=== PATIENT | male | born 2000 | race Caucasian/White ===

== ENCOUNTER 2021-11-14 21:09 | Inpatient (IN) ==
[2021-11-14] MEDS ORDERED: Ondansetron 4 MG/2 ML VIAL IVP ONE (23:19)
[2021-11-15] MEDS ORDERED: 0.9 % Sodium Chloride 1,000 ML IVC ONE (00:10)
[2021-11-15 00:47] LABS: Basophils # 0.1 K/mcL (0.0-0.2); Basophils % 0.2 %; Eosinophils % 0.1 %; Hematocrit 45.8 % (37.5-50.1); Hemoglobin 14.4 g/dL (12.9-16.9); Immature Granulocytes % 0.5 % (0-4); Lymphocytes # 2.8 K/mcL (0.6-4.6); Lymphocytes % 10.8 %; Mean Corpuscular HGB Conc 31.4 g/dL (31.6-35.5); Mean Corpuscular Hemoglobin 28.2 pg (28.0-33.3); Mean Corpuscular Volume 89.8 fL (83.0-100.0); Mean Platelet Volume 8.4 fL (9.4-12.4); Monocytes # 1.9 K/mcL (0.0-1.3); Monocytes % 7.3 %; Platelet Count 417 K/mcL (140-400); Red Cell Distribution Width 14.6 % (11.5-14.5); Segmented Neutrophils % 81.1 %; White Blood Count 25.9 K/mcL (4.3-11.1)
[2021-11-15 00:54] LABS: Prothrombin Time 11.6 Seconds (9.4-12.1)
[2021-11-15 00:56] LABS: Activated Partial Thrombo Time 31.5 Seconds (26.0-36.0)
[2021-11-15 01:08] LABS: Alanine Aminotransferase 29 Units/L (7-52); Albumin 3.6 g/dL (3.5-5.7); Albumin/Globulin Ratio 0.9 (1.1-2.2); Alkaline Phosphatase 131 Units/L (34-104); Aspartate Amino Transferase 51 Units/L (13-39); BUN/Creatinine Ratio 17 (6-26); Bilirubin,Indirect 0.2 mg/dL (0.0-1.0); Bilirubin,Total 0.2 mg/dL (0.3-1.0); Blood Urea Nitrogen 13 mg/dL (6-20); Calcium 8.8 mg/dL (8.6-10.3); Carbon Dioxide 31 mEq/L (23-29); Chloride 102 mEq/L (98-107); Globulin 3.9 g/dL (2.4-3.5); Glucose 65 mg/dL (70-105); Osmolality,Calculated 284 (280-300); Potassium 4.9 mEq/L (3.5-5.1); Sodium 138 mEq/L (136-145); Total Protein 7.5 g/dL (6.4-8.9); eGFR For African Americans > 60 (> 60); eGFR For Non-African Americans > 60 (> 60)
[2021-11-15 01:14] LABS: Troponin I 0.06 ng/mL (< 0.04)
[2021-11-15] MEDS ORDERED: Ampicillin/Sulbactam 3,000 MG in 0.9 % Sodium Chloride Mini Bag 100 ML IVPB ONE (02:34)
[2021-11-15] MEDS ORDERED: Naloxone 0.4 MG/ML INJ IVP PRN (03:29)
[2021-11-15] MEDS ORDERED: Ondansetron 4 MG/2 ML VIAL IVP PRN (03:29)
[2021-11-15] MEDS ORDERED: Acetaminophen 325 MG TABLET PO PRN (03:29)
[2021-11-15] MEDS ORDERED: Melatonin 3 MG TABLET PO PRN (03:29)
[2021-11-15] MEDS ORDERED: Chloraseptic Spray 177 ML BOTTLE MM PRN (03:32)
[2021-11-15] MEDS ORDERED: D5% in Water 1,000 ML IVC PRN (03:32)
[2021-11-15] MEDS ORDERED: *HR* Dextrose 50 % in Water (Syg) 50 ML SYRINGE IVP PRN (03:32)
[2021-11-15] MEDS ORDERED: Saline Nasal Spray 44 ML BOTTLE NS PRN (03:32)
[2021-11-15] MEDS ORDERED: Dextrose 4 GM Chewable Tablets PO PRN ×2 (03:32)
[2021-11-15] MEDS ORDERED: Artificial Tears SOLN 15 ML BOTTLE BOTH EYES PRN (03:32)
[2021-11-15] MEDS ORDERED: Saliva Stimulant 44.3ml BOTTLE PO PRN (03:32)
[2021-11-15] MEDS ORDERED: Ipratropium/Albuterol Neb 3 ML IH SCH (04:00)
[2021-11-15] MEDS: Piperacillin/Tazobactam 3.375 GM in 0.9 % Sodium Chloride Mini Bag 100 ML IVPB SCH ×3 (05:22→21:46)
[2021-11-15 05:32] LABS: Basophils # 0.1 K/mcL (0.0-0.2); Basophils % 0.4 %; Eosinophils # 0.2 K/mcL (0.0-0.6); Hematocrit 39.5 % (37.5-50.1); Hemoglobin 12.2 g/dL (12.9-16.9); Immature Granulocytes % 0.3 % (0-4); Immature Platelets 3.3 % (1.1-6.1); Mean Corpuscular HGB Conc 30.9 g/dL (31.6-35.5); Mean Corpuscular Hemoglobin 28.5 pg (28.0-33.3); Mean Corpuscular Volume 92.3 fL (83.0-100.0); Mean Platelet Volume 9.7 fL (9.4-12.4); Monocytes # 1.2 K/mcL (0.0-1.3); Neutrophils # 11.3 K/mcL (1.6-8.9); Platelet Count 254 K/mcL (140-400); Red Blood Count 4.28 M/mcL (4.19-5.50); Red Cell Distribution Width 14.8 % (11.5-14.5); Segmented Neutrophils % 67.3 %; White Blood Count 16.8 K/mcL (4.3-11.1)
[2021-11-15 05:39] LABS: INR 1.1; Prothrombin Time 12.5 Seconds (9.4-12.1)
[2021-11-15 05:41] LABS: Activated Partial Thrombo Time 31.3 Seconds (26.0-36.0)
[2021-11-15 05:50] LABS: Alanine Aminotransferase 24 Units/L (7-52); Albumin 3.1 g/dL (3.5-5.7); Albumin/Globulin Ratio 0.9 (1.1-2.2); Alkaline Phosphatase 116 Units/L (34-104); Aspartate Amino Transferase 37 Units/L (13-39); BUN/Creatinine Ratio 15 (6-26); Bilirubin,Total 0.1 mg/dL (0.3-1.0); Blood Urea Nitrogen 11 mg/dL (6-20); Carbon Dioxide 30 mEq/L (23-29); Chloride 102 mEq/L (98-107); Chol/HDL Ratio 2.3 (0-4.9); Cholesterol 103 mg/dL (< 200); Globulin 3.5 g/dL (2.4-3.5); Glucose 214 mg/dL (70-105); HDL Cholesterol 44 mg/dL (40-59); LDL Cholesterol,Calculated 48 mg/dL (< 100); Osmolality,Calculated 290 (280-300); Phosphorous 3.3 mg/dL (2.7-4.5); Potassium 4.6 mEq/L (3.5-5.1); Sodium 137 mEq/L (136-145); Total Protein 6.6 g/dL (6.4-8.9); Triglycerides 54 mg/dL (< 150); eGFR For African Americans > 60 (> 60); eGFR For Non-African Americans > 60 (> 60)
[2021-11-15 06:11] LABS: Adenovirus Not Detected (Not Detect); Bordetella Pertussis Not Detected (Not Detect); Chlamydophila pneumoniae Not Detected (Not Detect); Coronavirus 229E Not Detected (Not Detect); Coronavirus HKU1 Not Detected (Not Detect); Coronavirus NL63 Not Detected (Not Detect); Coronavirus OC43 Not Detected (Not Detect); Human Metapneumovirus Not Detected (Not Detect); Human Rhinovirus/Enterovirus Not Detected (Not Detect); Influenza A Subtype 2009 H1 Not Detected (Not Detect); Influenza B Not Detected (Not Detect); Mycoplasma pneumoniae Not Detected (Not Detect); Parainfluenza Virus 1 Not Detected (Not Detect); Parainfluenza Virus 2 Not Detected (Not Detect); Parainfluenza Virus 3 Not Detected (Not Detect); Parainfluenza Virus 4 Not Detected (Not Detect); Respiratory Syncytial Virus Not Detected (Not Detect); SARS-CoV-2 Not Detected (Not Detect)
[2021-11-15] MEDS ORDERED: Nicotine 2 MG GUM BC PRN (06:11)
[2021-11-15] MEDS: Acetylcysteine 10% 2 ML INHSOL IH SCH ×4 (07:20→21:59)
[2021-11-15] MEDS: Ipratropium/Albuterol Neb 3 ML IH SCH ×4 (07:20→21:59)
[2021-11-15] MEDS: 3% Sodium Chloride Inhalation 4 ML VIAL.NEB IH SCH ×3 (07:20→15:33)
[2021-11-15] MEDS ORDERED: Perflutren Lipid Microsphere 1.3 ML in 0.9 % Sodium Chloride 8.7 ML IVP PRN (07:28)
[2021-11-15] MEDS: Insulin LISPRO 300 UNITS/3 ML VIAL SUBQ SCH ×3 (07:58→17:21)
[2021-11-15] MEDS: Aspirin 81 MG TAB.CHEW PO SCH (07:59)
[2021-11-15] MEDS: levoFLOXacin 750 MG/150 ML 750 MG/150 ML BAG IVPB SCH (07:59)
[2021-11-15] MEDS: predniSONE 20 MG TABLET PO SCH (07:59)
[2021-11-15] MEDS: Nicotine 21 MG PATCH.TD24 TD SCH (07:59)
[2021-11-15] MEDS: Chlorhexidine Rinse 15 ML MOUTHWASH MM SCH ×2 (07:59→20:19)
[2021-11-15] MEDS: Multivit/Ca/Min/Fe/FA 1 TAB TABLET PO SCH (07:59)
[2021-11-15] MEDS: 0.9 % Sodium Chloride 1,000 ML IVC SCH ×2 (08:10→23:19)
[2021-11-15] MEDS: Budesonide/Formoterol 160/4.5 1 PUFF INH IH SCH ×2 (10:28→21:59)
[2021-11-15 12:50] LABS: Amphetamine Screen,Urine Negative ng/mL (Cutoff=1000); Barbiturate Screen,Urine Negative ng/mL (Cutoff=200); Benzodiazepines Screen,Urine Negative ng/mL (Cutoff=200); Cannabinoid Screen,Urine Positive ng/mL (Cutoff = 50); Cocaine Screen,Urine Negative ng/mL (Cutoff= 300); Opiate Screen,Urine Negative ng/mL (Cutoff=300); Phencyclidine Screen,Urine Negative ng/mL (Cutoff=25)
[2021-11-15] MEDS ORDERED: Sennosides/Docusate Sodium TABLET PO PRN (18:25)
[2021-11-15] MEDS: IVACAFTOR 150 MG PO SCH (20:19)
[2021-11-15] MEDS: DORNASE ALFA 2.5 MG/2.5 ML IH SCH (21:59)
[2021-11-16] MEDS: Ipratropium/Albuterol Neb 3 ML IH SCH ×4 (04:13→20:23)
[2021-11-16] MEDS: Acetylcysteine 10% 2 ML INHSOL IH SCH ×4 (04:13→20:23)
[2021-11-16] MEDS: *HR* Enoxaparin 40 MG/0.4 ML SYRINGE SQ SCH ×2 (05:11→05:13)
[2021-11-16] MEDS: Piperacillin/Tazobactam 3.375 GM in 0.9 % Sodium Chloride Mini Bag 100 ML IVPB SCH (06:16)
[2021-11-16] MEDS: Nicotine 21 MG PATCH.TD24 TD SCH (08:55)
[2021-11-16] MEDS: IVACAFTOR 150 MG PO SCH ×2 (08:55→20:15)
[2021-11-16] MEDS: Insulin LISPRO 300 UNITS/3 ML VIAL SUBQ SCH ×4 (08:56→21:43)
[2021-11-16] MEDS ORDERED: [UNRECOGNIZED DRUG - MIXTURE] PO SCH (09:00)
[2021-11-16] MEDS: Chlorhexidine Rinse 15 ML MOUTHWASH MM SCH (09:05)
[2021-11-16] MEDS: levoFLOXacin 750 MG/150 ML 750 MG/150 ML BAG IVPB SCH (09:06)
[2021-11-16] MEDS: Fluticasone Propionate Nasal 50 MCG/SPRAY BOTTLE NS SCH (09:06)
[2021-11-16] MEDS: predniSONE 20 MG TABLET PO SCH (09:06)
[2021-11-16] MEDS: Aspirin 81 MG TAB.CHEW PO SCH (09:06)
[2021-11-16] MEDS: Multivit/Ca/Min/Fe/FA 1 TAB TABLET PO SCH (09:06)
[2021-11-16 09:10] LABS: Basophils # 0.1 K/mcL (0.0-0.2); Basophils % 0.4 %; Eosinophils # 0.1 K/mcL (0.0-0.6); Eosinophils % 0.5 %; Hematocrit 37.4 % (37.5-50.1); Hemoglobin 11.5 g/dL (12.9-16.9); Immature Granulocytes % 0.2 % (0-4); Lymphocytes # 2.6 K/mcL (0.6-4.6); Mean Corpuscular HGB Conc 30.7 g/dL (31.6-35.5); Mean Corpuscular Volume 91.2 fL (83.0-100.0); Mean Platelet Volume 8.8 fL (9.4-12.4); Monocytes # 1.1 K/mcL (0.0-1.3); Monocytes % 6.4 %; Neutrophils # 12.6 K/mcL (1.6-8.9); Platelet Count 368 K/mcL (140-400); Red Cell Distribution Width 14.8 % (11.5-14.5); Segmented Neutrophils % 76.5 %; White Blood Count 16.5 K/mcL (4.3-11.1)
[2021-11-16 09:40] LABS: BUN/Creatinine Ratio 8 (6-26); Blood Urea Nitrogen 6 mg/dL (6-20); Carbon Dioxide 28 mEq/L (23-29); Chloride 107 mEq/L (98-107); Glucose 163 mg/dL (70-105); Osmolality,Calculated 287 (280-300); Potassium 4.5 mEq/L (3.5-5.1); Sodium 138 mEq/L (136-145); eGFR For African Americans > 60 (> 60); eGFR For Non-African Americans > 60 (> 60)
[2021-11-16] MEDS: DORNASE ALFA 2.5 MG/2.5 ML IH SCH ×2 (10:48→20:24)
[2021-11-16] MEDS: Budesonide/Formoterol 160/4.5 1 PUFF INH IH SCH (10:49)
[2021-11-16] MEDS ORDERED: Chloraseptic Spray 177 ML BOTTLE MM PRN ×2 (13:26→15:19)
[2021-11-16] MEDS: Insulin DETEMIR 100 UNIT/ML X5UNITS SUBQ SCH (21:43)
[2021-11-17 03:15] LABS: Basophils # 0.1 K/mcL (0.0-0.2); Basophils % 0.4 %; Eosinophils # 0.1 K/mcL (0.0-0.6); Eosinophils % 0.5 %; Hematocrit 39.1 % (37.5-50.1); Hemoglobin 12.4 g/dL (12.9-16.9); Immature Granulocytes % 0.4 % (0-4); Lymphocytes # 3.7 K/mcL (0.6-4.6); Lymphocytes % 21.8 %; Mean Corpuscular HGB Conc 31.7 g/dL (31.6-35.5); Mean Corpuscular Hemoglobin 28.1 pg (28.0-33.3); Mean Corpuscular Volume 88.7 fL (83.0-100.0); Mean Platelet Volume 8.6 fL (9.4-12.4); Monocytes # 1.3 K/mcL (0.0-1.3); Monocytes % 7.6 %; Neutrophils # 11.8 K/mcL (1.6-8.9); Platelet Count 405 K/mcL (140-400); Red Blood Count 4.41 M/mcL (4.19-5.50); Red Cell Distribution Width 14.5 % (11.5-14.5); Segmented Neutrophils % 69.3 %
[2021-11-17 03:35] LABS: BUN/Creatinine Ratio 11 (6-26); Blood Urea Nitrogen 8 mg/dL (6-20); Calcium 8.6 mg/dL (8.6-10.3); Carbon Dioxide 27 mEq/L (23-29); Chloride 107 mEq/L (98-107); Glucose 65 mg/dL (70-105); Magnesium 1.9 mg/dL (1.6-2.6); Osmolality,Calculated 284 (280-300); Potassium 4.1 mEq/L (3.5-5.1); Sodium 139 mEq/L (136-145); eGFR For African Americans > 60 (> 60); eGFR For Non-African Americans > 60 (> 60)
[2021-11-17] MEDS: Ipratropium/Albuterol Neb 3 ML IH SCH ×4 (03:57→20:00)
[2021-11-17] MEDS: Acetylcysteine 10% 2 ML INHSOL IH SCH ×4 (03:57→20:00)
[2021-11-17 05:49] LABS: Estimated Average Glucose 146 mg/dl; Hemoglobin A1C 6.7 %
[2021-11-17] MEDS: *HR* Enoxaparin 40 MG/0.4 ML SYRINGE SQ SCH (06:07)
[2021-11-17] MEDS: Insulin LISPRO 300 UNITS/3 ML VIAL SUBQ SCH ×4 (07:44→20:18)
[2021-11-17] MEDS: DORNASE ALFA 2.5 MG/2.5 ML IH SCH ×2 (07:57→20:02)
[2021-11-17] MEDS ORDERED: Azithromycin 250 MG TABLET PO SCH ×2 (09:00→13:36)
[2021-11-17] MEDS: predniSONE 20 MG TABLET PO SCH (09:45)
[2021-11-17] MEDS: Aspirin 81 MG TAB.CHEW PO SCH (09:45)
[2021-11-17] MEDS: Multivit/Ca/Min/Fe/FA 1 TAB TABLET PO SCH (09:45)
[2021-11-17] MEDS: Nicotine 21 MG PATCH.TD24 TD SCH (09:45)
[2021-11-17] MEDS: IVACAFTOR 150 MG PO SCH ×2 (09:47→20:17)
[2021-11-17] MEDS: Fluticasone Propionate Nasal 50 MCG/SPRAY BOTTLE NS SCH (12:09)
[2021-11-17] MEDS: Insulin DETEMIR 100 UNIT/ML X5UNITS SUBQ SCH (20:22)
[2021-11-18] MEDS: Ipratropium/Albuterol Neb 3 ML IH SCH ×3 (03:40→15:13)
[2021-11-18] MEDS: Acetylcysteine 10% 2 ML INHSOL IH SCH ×3 (03:40→15:13)
[2021-11-18 03:46] LABS: Basophils # 0.1 K/mcL (0.0-0.2); Basophils % 0.3 %; Eosinophils # 0.1 K/mcL (0.0-0.6); Eosinophils % 0.7 %; Hematocrit 38.5 % (37.5-50.1); Hemoglobin 12.3 g/dL (12.9-16.9); Immature Granulocytes % 0.4 % (0-4); Lymphocytes # 4.3 K/mcL (0.6-4.6); Lymphocytes % 28.2 %; Mean Corpuscular HGB Conc 31.9 g/dL (31.6-35.5); Mean Corpuscular Hemoglobin 28.1 pg (28.0-33.3); Mean Corpuscular Volume 87.9 fL (83.0-100.0); Mean Platelet Volume 8.8 fL (9.4-12.4); Monocytes # 1.2 K/mcL (0.0-1.3); Monocytes % 7.9 %; Neutrophils # 9.5 K/mcL (1.6-8.9); Platelet Count 418 K/mcL (140-400); Red Blood Count 4.38 M/mcL (4.19-5.50); Red Cell Distribution Width 14.6 % (11.5-14.5); Segmented Neutrophils % 62.5 %; White Blood Count 15.1 K/mcL (4.3-11.1)
[2021-11-18 04:09] LABS: BUN/Creatinine Ratio 15 (6-26); Blood Urea Nitrogen 10 mg/dL (6-20); Calcium 8.6 mg/dL (8.6-10.3); Carbon Dioxide 27 mEq/L (23-29); Chloride 106 mEq/L (98-107); Glucose 99 mg/dL (70-105); Osmolality,Calculated 287 (280-300); Potassium 3.8 mEq/L (3.5-5.1); Sodium 139 mEq/L (136-145); eGFR For African Americans > 60 (> 60); eGFR For Non-African Americans > 60 (> 60)
[2021-11-18] MEDS: *HR* Enoxaparin 40 MG/0.4 ML SYRINGE SQ SCH (04:58)
[2021-11-18] MEDS: DORNASE ALFA 2.5 MG/2.5 ML IH SCH (07:28)
[2021-11-18] MEDS: Insulin LISPRO 300 UNITS/3 ML VIAL SUBQ SCH ×2 (08:58→12:57)
[2021-11-18] MEDS: Nicotine 21 MG PATCH.TD24 TD SCH (09:23)
[2021-11-18] MEDS: Aspirin 81 MG TAB.CHEW PO SCH (09:23)
[2021-11-18] MEDS: Fluticasone Propionate Nasal 50 MCG/SPRAY BOTTLE NS SCH (09:23)
[2021-11-18] MEDS: Multivit/Ca/Min/Fe/FA 1 TAB TABLET PO SCH (09:23)
[2021-11-18] MEDS: predniSONE 20 MG TABLET PO SCH (09:23)
[2021-11-18] MEDS: IVACAFTOR 150 MG PO SCH (09:24)
[2021-11-18 10:30] LABS: Mycoplasma pneumoniae IgG 0.04 U/L (<=0.09)
[2021-11-18 11:14] VITALS: BP 114/57; PULSE 61; TEMP 98.4; O2SAT 98
== END 2021-11-18 17:26 | disposition home or self-care (01) | DRG 812 ==
LOC: EMEROOARM 21:09 → 2NENU 21:09 → MERGE 11-15 03:17 → 2NENU 11-15 04:25 → SUATTDRO 11-15 14:55
PROVIDERS: ADMIT Internal Medicine; ATTEND Family Medicine